=== PATIENT | female | born 1995 | race Caucasian/White ===

== ENCOUNTER → 2019-09-15 15:57 | Outpatient (BNVA) | payer MEDICAID, SELFPAY | PROVIDERS: Family Provider Nurse Practitioner Family; PCP Nurse Practitioner Family; Visit Provider Nurse Practitioner Family | DX: E78.2 Mixed hyperlipidemia (principal); Z79.899 Other long term (current) drug therapy; R10.84 Generalized abdominal pain; R30.0 Dysuria | CPT/HCPCS: 80053; 80061; 81003; 82306; 83036; 84443; 85025 ==

== ENCOUNTER 2019-09-21 15:33 | Outpatient (CLI) | payer MEDICAID, SELFPAY ==
--- NOTE | 2019-09-21 15:57 | XRR_ITS ---
PROCEDURE INFORMATION: Exam: XR Abdomen, 1 View Exam date and time: 09/21/2019 4:27 PM Age: 24 years old Clinical indication: Abdominal pain and other: Left flank; Prior surgery; Surgery date: 6+ months; Surgery type: Cone procedures. Iud; Patient HX: C/O left flank/abd pain and low back pain TECHNIQUE: Imaging protocol: XR of the abdomen. Views: Frontal supine view of the abdomen. 1 View. COMPARISON: CT abdomen pelvis w con* [id number] 09/18/2014 8:24 PM FINDINGS: Gastrointestinal tract: Unremarkable. No bowel dilation. Bones/joints: No acute abnormality identified. Soft tissues: The left pelvis contains a Mirena IUD. XR/XR KUB [id number] IMPRESSION: 1. No acute abdominal or pelvic abnormality identified. 2. Intrauterine device.
--- NOTE | 2019-09-21 15:57 | XRR_ITS ---
PROCEDURE INFORMATION: Exam: XR Lumbosacral Spine Complete with Flexion/Extension, 6 or More Views Exam date and time: 09/21/2019 4:29 PM Age: 24 years old Clinical indication: Low back pain; Prior surgery; Surgery date: 6+ months; Surgery type: Cone procedures. Iud; Patient HX: C/O low back and left flank abd pain last few weeks. HX of cervical cancer? TECHNIQUE: Imaging protocol: XR of the lumbosacral spine with flexion/extension, 6 or more views. Other technique: AP, both oblique, neutral, flexion and extension lateral, and spot lateral views of the lumbar spine are submitted. COMPARISON: CT abdomen pelvis w con* [id number] 09/18/2014 8:24 PM FINDINGS: Vertebrae: No instability with flexion or extension positioning identified. Interval now chronic mild T12 and L1 vertebral body compression deformities. Organs: The left pelvis contains a Mirena IUD. Soft tissues: Unremarkable. Other findings: Limited range of motion in flexion and extension. XR/XR lumbar spine 6V w f/e [id number] IMPRESSION: 1. Limited range of motion in flexion and extension. 2. No instability with flexion or extension positioning identified. 3. Interval now chronic mild T12 and L1 vertebral body compression deformities. 4. Intrauterine device.
== END 2019-09-21 15:34 | disposition home or self-care (01) ==
LOC: RAD 15:38
PROVIDERS: Family Provider Nurse Practitioner Family; PCP Nurse Practitioner Family; Visit Provider Nurse Practitioner Family
DX: R10.9 Unspecified abdominal pain (principal); M54.5 Low back pain; Z97.5 Presence of (intrauterine) contraceptive device
CPT/HCPCS: 72114; 74018; 85025

== ENCOUNTER 2019-10-05 13:35 | Outpatient (CLI) | payer MEDICAID, SELFPAY ==
--- NOTE | 2019-10-05 13:48 | MR_ITS ---
WS: [id number] MRI LUMBAR SPINE NONCONTRAST HISTORY: FRACTURE OF UNSPECIFIED LUMBAR VERTEBRA COMPARISON: Radiographs 09/21/2019 TECHNIQUE: Sagittal and axial multisequence imaging is submitted. Very mild anterior wedging of T12 and L1 with Schmorl's nodes defects. No acute marrow edema. New ant erior wedging since a CT from 2014. Moderate disc space narrowing and desiccation at T12-L1. There is mild desiccation without narrowing at L4-5. Conus terminates normally at L1. L1-L2: Normal. L2-L3: Small amount of fluid in the facet joints. No stenosis. L3-L4: Normal. L4-L5: Small amount of fluid in the facet joints with mild annular disc bulging and a moderate centra l to LEFT paracentral disc protrusion. Disc protrusion is contacting and slightly displacing the LEFT L5 nerve root. L5-S1: LEFT paracentral shallow disc protrusion with annular fissure. No contact on the nerve roots. No stenosis. Paravertebral soft tissues are normal. MR/MR lumbar spine wo con* [id number] IMPRESSION: 1. Moderate central to LEFT paracentral disc protrusion at L4-5 with contact a nd displacement of the LEFT L5 nerve root in the subarticular recess. 2. Shallow LEFT paracentral disc protrusion at L5-S1 without nerve root contac t. 3. Very mild anterior wedging of T12 and L1 is new since 2014. No acute fractu re.
== END 2019-10-05 13:36 | disposition home or self-care (01) ==
LOC: RADWPI 13:45
PROVIDERS: Family Provider Nurse Practitioner Family; PCP Nurse Practitioner Family; Visit Provider Nurse Practitioner Family
DX: M51.27 Other intervertebral disc displacement, lumbosacral region (principal); S22.080A Wedge compression fracture of T11-T12 vertebra, initial encounter for closed fracture; S32.010A Wedge compression fracture of first lumbar vertebra, initial encounter for closed fracture; X58.XXXA Exposure to other specified factors, initial encounter
CPT/HCPCS: 72148

== ENCOUNTER 2019-11-04 06:00 | Outpatient (RCR) | payer MEDICAID, SELFPAY | END 2019-11-24 23:59 | disposition home or self-care (01) | LOC: WPT 06:00 | PROVIDERS: Family Provider Nurse Practitioner Family; PCP Nurse Practitioner Family; Referring Provider Nurse Practitioner Family; Visit Provider Nurse Practitioner Family | DX: G89.29 Other chronic pain (principal); M54.9 Dorsalgia, unspecified | CPT/HCPCS: 97110; 97161 ==

== ENCOUNTER → 2019-11-23 09:02 | Outpatient (BNVA) | payer MEDICAID, SELFPAY | PROVIDERS: Family Provider Nurse Practitioner Family; PCP Nurse Practitioner Family; Visit Provider Nurse Practitioner Family | DX: K52.9 Noninfective gastroenteritis and colitis, unspecified (principal); E78.2 Mixed hyperlipidemia; Z79.899 Other long term (current) drug therapy | CPT/HCPCS: 82784; 83516; 84439; 84443; 84481 ==

== ENCOUNTER 2019-11-28 11:09 | Emergency (ER) | payer MEDICAID, SELFPAY ==
[2019-11-28 11:16] VITALS: BP 125/84; PULSE 76; RESP 14; TEMP 36.1; O2SAT 99; BMI 30.7
[2019-11-28 11:39] LABS: Add Urine Microscopic? NO
[2019-11-28 11:46] VITALS: BMI 30.7
--- NOTE | 2019-11-28 11:53 | XRR_ITS ---
PROCEDURE INFORMATION: Exam: XR Abdomen, 1 View Exam date and time: 11/28/2019 11:57 AM Age: 24 years old Clinical indication: Abdominal pain; Prior surgery; Surgery date: 6+ months; Surgery type: Leep procedure; Patient HX: Generalized abdomen pain, history of cervical cancer TECHNIQUE: Imaging protocol: XR of the abdomen. Views: Frontal supine view of the abdomen. 1 View. COMPARISON: CR XR KUB [id number] 09/21/2019 4:03 PM FINDINGS: Gastrointestinal tract: Interval decrease in quantity of stool, with paucity of intra-abdominal bowel gas. Organs: Interval removal of previously visualized IUD. Bones/joints: Mild scoliosis. Other findings: Umbilical piercing. XR/XR KUB portable [id number] IMPRESSION: Interval decrease in quantity of stool, with paucity of intra-abdominal bowel gas.
[2019-11-28 11:54] LABS: Urine Appearance Clear (CLEAR); Urine Color Yellow (Yellow)
[2019-11-28 11:55] LABS: Bilirubin Urine Neg (Negative); Blood Urine Neg (Negative); Glucose Urine UA Norm (Normal); Ketones Urine Negative (Negative); Leukocyte Esterase Urine Negative (Negative); Nitrate Urine Negative (Negative); Protein Urine Neg (Negative); Urobilinogen Urine Norm (Negative); pH Urine 6.5 (5-7)
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
[2019-11-28] MEDS: lactated ringers 1,000 ML 999 ML IV (12:08)
[2019-11-28] MEDS: ondansetron 2 mg/ML SDV 2 mL 4 MG IVP (12:08)
[2019-11-28 12:22] LABS: Basophils % 0.3 %; Eosinophils # 0.1 10^3/uL (0.0-0.8); Eosinophils % 0.8 %; Hematocrit 45.8 % (37.0-47.0); Hemoglobin 14.9 g/dL (11.5-15.3); Lymphocytes # 2.6 10^3/uL (0.8-4.8); Lymphocytes % 26.6 %; Mean Corpuscular HGB Conc 32.5 g/dL (30.0-36.0); Mean Corpuscular Hemoglobin 27.2 pg (28.0-34.0); Mean Corpuscular Volume 83.7 fL (81-99); Monocytes # 0.5 10^3/uL (0.2-0.9); Monocytes % 5.1 %; Neutrophils # 6.52 10^3/uL (1.8-7.7); Neutrophils % 66.8 %; Nucleated Red Blood Cells % 0 %; Platelet Count 333 10^3/cmm (130-400); Red Blood Count 5.47 10^6/uL (4.1-5.3); Red Cell Distribution Width 13.2 % (12.1-15.1); White Blood Count 9.8 10^3/uL (4.0-10.0)
[2019-11-28 12:40] LABS: HCG, Serum Qual Negative (Negative)
[2019-11-28 12:41] LABS: HCG Qualitative Urine. Negative (Negative)
[2019-11-28] MEDS: ketorolac 30 mg/mL INJ 15 MG IVP (12:44)
[2019-11-28 12:46] LABS: Alanine Aminotransferase 31 U/L (0-33); Albumin Level 4.5 g/dL (3.5-5.2); Alkaline Phosphatase 104 IU/L (35-105); Anion Gap 15.9 (5-19); Aspartate Amino Transferase 22 U/L (0-32); Blood Urea Nitrogen 7 mg/dL (6-20); Calcium 10.5 mg/dL (8.5-10.5); Carbon Dioxide 28 mmol/L (22-29); Chloride 98 mmol/L (98-107); Creatinine Clr Calc Pharmacy 153.3363; Glomerular Filtration Rate 121.8 mL/min (90-130); Glucose 130 mg/dL (65-115); Lipase 32 U/L (13-60); Osmolality Calculated 286 mOsm/kg (285-295); Potassium 3.9 mmol/L (3.5-5.1); Sodium 138 mmol/L (136-145); Total Bilirubin 0.8 mg/dL (0.15-1.2); Total Protein 7.5 g/dL (6.6-8.7)
[2019-11-28 15:00] VITALS: BP 114/69; PULSE 80; RESP 18; O2SAT 95
== END 2019-11-28 15:00 | disposition home or self-care (01) ==
PROVIDERS: Emergency Medicine; Emergency Provider Student in an Organized Health Care Education/Training Program; PCP Nurse Practitioner Family
DX: R10.84 Generalized abdominal pain (principal); K52.9 Noninfective gastroenteritis and colitis, unspecified; E78.2 Mixed hyperlipidemia
CPT/HCPCS: 12345; 74018; 80053; 81003; 81025; 83690; 84703; 85025; 86140; 96365; 96375; 99283; J1885; J2405

== ENCOUNTER → 2019-12-22 11:54 | Outpatient (BNVA) | payer MEDICAID, SELFPAY | PROVIDERS: PCP Nurse Practitioner Family; Visit Provider Nurse Practitioner Family | DX: K52.9 Noninfective gastroenteritis and colitis, unspecified (principal) | CPT/HCPCS: 87177; 87205; 87209; 87493 ==

== ENCOUNTER 2019-12-23 12:31 | Outpatient (CLI) | payer MEDICAID, SELFPAY ==
--- NOTE | 2019-12-23 12:45 | US_ITS ---
WS: [id number] Complete ABDOMINAL ULTRASOUND HISTORY: abdominal pain COMPARISON: CT 09/18/2014 Liver: 16.2 cm in length. Liver is top normal size. Heterogeneous appearance of the liver. There is a focal hypoechoic nodule in the RIGHT lobe of the liver measures 2.7 x 2.1 x 2.9 cm. No corresponding abnormality on the prior CT. Overall the echotexture of the liver is heterogeneous. No bile duct dil atation. Gallbladder: Normally distended with no gallstones, wall thickening or pericholecystic fluid. Gallbladder wall thickness: 0.2 cm. Pancreas: Normal size and echogenicity. CBD: 0.4 cm. Right kidney: 11.5 cm x 5.2 cm x 3.9 cm. No mass, cortical thickening or hydronephrosis. Left kidney: 12.0 cm x 5.1 cm x 5.2 cm. No mass, cortical thickening or hydronephrosis. Spleen: Normal size and echogenicity. Abdominal aorta and IVC are within normal limits. No ascites. US/US abdomen complete* [id number] IMPRESSION: 1. Heterogeneous liver with hepatic steatosis. 2. Hypoechoic mass in the liver measures 2.7 x 2.1 x 2.9 cm. This may be focal hepatic steatosis. Not typical for a hemangioma. Cannot exclude metastatic les ion. Recommend follow-up three-phase CT abdomen with CT pelvis. Further evaluat ion of this lesion liver lesion needs to be performed to exclude metastatic or primary lesion. 3. Normal gallbladder.
== END 2019-12-23 12:32 | disposition home or self-care (01) ==
LOC: RAD 12:35
PROVIDERS: PCP Nurse Practitioner Family; Visit Provider Nurse Practitioner Family
DX: R10.9 Unspecified abdominal pain (principal); K76.0 Fatty (change of) liver, not elsewhere classified; R16.0 Hepatomegaly, not elsewhere classified
CPT/HCPCS: 76700

== ENCOUNTER → 2020-03-09 14:14 | Outpatient (BNVA) | payer BC, MEDICAID, SELFPAY | PROVIDERS: PCP Nurse Practitioner Family; Visit Provider Internal Medicine | DX: Z11.59 Encounter for screening for other viral diseases (principal); R10.84 Generalized abdominal pain | CPT/HCPCS: 87635 ==

== ENCOUNTER 2020-03-13 08:25 | Day surgery (SDC) | payer BC, MEDICAID, SELFPAY ==
[2020-03-09 12:58] VITALS: BMI 34.2
[2020-03-13 08:43] LABS: OR HCG Qualitative Urine Negative (Negative)
[2020-03-13 08:45] VITALS: BP 117/84; PULSE 101; RESP 18; TEMP 35.5; O2SAT 98
[2020-03-13] MEDS: sodium chloride 0.9% 1,000 ML 30 ML IV (08:50)
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
[2020-03-13 10:39] VITALS: BP 138/74; PULSE 93; RESP 16; TEMP 36.1; O2SAT 96
[2020-03-13] MEDS: ondansetron 2 mg/ML SDV 2 mL 4 MG IVP ×2 (10:54→11:19)
[2020-03-13 10:55] VITALS: BP 108/74; PULSE 76; RESP 16; O2SAT 97
--- NOTE | 2020-03-13 15:42 | ANE.PACU2 ---
Inpatient post-anesthesia follow up: Airway intact: Yes Vital signs: Temperature 97 F Pulse Rate 76 Respiratory Rate 16 Blood Pressure 108/74 Pulse Oximetry 97 Oxygen Delivery Me thod Room Air Oxygen Flow Rate Fraction of Inspir ed Oxygen Hydration adequate: Yes Nausea and vomiting: No Pain level: 1 Mental status: Baseline
== END 2020-03-13 11:54 | disposition home or self-care (01) ==
PROVIDERS: Anesthesiology; PCP Nurse Practitioner Family; Visit Provider Internal Medicine
PROC: 0DJ08ZZ Inspection of Upper Intestinal Tract, Via Natural or Artificial Opening Endoscopic (ICD-10-PCS; CPT 43235; principal; 2020-03-13 09:30)
PROC: 0DJD8ZZ Inspection of Lower Intestinal Tract, Via Natural or Artificial Opening Endoscopic (ICD-10-PCS; CPT 45378; 2020-03-13 09:30)
DX: K52.9 Noninfective gastroenteritis and colitis, unspecified (principal); R16.0 Hepatomegaly, not elsewhere classified; M19.90 Unspecified osteoarthritis, unspecified site; K21.9 Gastro-esophageal reflux disease without esophagitis; E78.2 Mixed hyperlipidemia; F41.9 Anxiety disorder, unspecified
CPT/HCPCS: 12345; 43239; 45380; 81025; 82274; 83630; 84703; 87046; 87177; 87209; 87493; 88305; J2405; J2704; J7030

== ENCOUNTER → 2020-05-01 09:34 | Outpatient (BNVA) | payer BC, MEDICAID, SELFPAY | PROVIDERS: PCP Nurse Practitioner Family; Referring Provider Nurse Practitioner Family; Visit Provider Anesthesiology Pain Medicine | DX: G89.29 Other chronic pain (principal); M54.9 Dorsalgia, unspecified; M79.605 Pain in left leg; Z79.899 Other long term (current) drug therapy; Z79.891 Long term (current) use of opiate analgesic | CPT/HCPCS: 99205 ==

== ENCOUNTER → 2020-05-02 10:43 | Outpatient (BNVA) | payer BC, MEDICAID, SELFPAY | PROVIDERS: PCP Nurse Practitioner Family; Visit Provider Orthopaedic Surgery | DX: M41.85 Other forms of scoliosis, thoracolumbar region (principal); M47.894 Other spondylosis, thoracic region; M47.896 Other spondylosis, lumbar region; M54.5 Low back pain; G89.29 Other chronic pain | CPT/HCPCS: 72110 ==

== ENCOUNTER → 2020-05-30 11:28 | Outpatient (BNVA) | payer BC, MEDICAID, SELFPAY | PROVIDERS: PCP Nurse Practitioner Family; Visit Provider Nurse Practitioner Family | DX: Z01.818 Encounter for other preprocedural examination (principal); Z20.822 Contact with and (suspected) exposure to COVID-19 | CPT/HCPCS: 87635 ==

== ENCOUNTER 2020-06-13 09:00 | Outpatient (CLI) | payer BC, MEDICAID, SELFPAY ==
[2020-06-13] MEDS: iohexol 300 mg/mL 100 mL Btl IV (10:27)
--- NOTE | 2020-06-13 10:30 | CT_ITS ---
WS: [id number] CT ABDOMEN WITH CONTRAST HISTORY: R16.0 - Hepatomegaly, not elsewhere classified 3 phase imaging of the liver. Oral contrast has been provided. Coronal and sagittal reformats are sub mitted. All CT scans at [facility] use at least one of these dose optimization techniques : automated exposure control; mA and/or kV adjustment per patient size (includes targeted exams where dose is matched to clinical indication); or iterative reconstruction. CONTRAST: Omnipaque 300; 95 mL IV. DLP: 2610.24 mGycm COMPARISON: 09/18/2014 and prior abdomen ultrasound 12/23/2019 Lower thorax: Unremarkable. Liver: Liver is moderately enlarged. There is severe, near diffuse hepatic steatosis with a few areas of sparing. There is an area of increased density in the medial LEFT lobe of the liver correspondin g to the previously described ultrasound abnormality measuring 2.5 x 2.2 cm. There has been no increa se in size of this liver abnormality since the prior study. On the postcontrast imaging there is very mild enhancement. No additional similar areas. No bile duct dilatation. Gallbladder: Normal. Pancreas: Normal. Spleen: Normal. Adrenals: Normal. Right kidney: Normal. Left kidney: Normal. Aorta: Normal. GI tract: As visualized are normal. No adenopathy or free fluid. Abdominal wall: No hernia. Visualized osseous structures: Mild degenerative disc disease at T12-L1. CT/CT abdomen wo/w con [id number] IMPRESSION: 1. Moderate hepatomegaly with severe hepatic steatosis with areas of fatty spa ring. 2. Previously described mass by ultrasound in the medial LEFT lobe of the live r is unchanged in size now measuring 2.5 x 2.2 cm. Although there is slight enh ancement no increase in size suggests this could be a benign lesion such as fat ty sparing. Suggest additional evaluation. MRI with contrast or follow-up ultra sound to continue to document stability in size is recommended. Does not appear to be a hemangioma. Liver lesion was not present on a prior CT from 2014.
== END 2020-06-13 09:01 | disposition home or self-care (01) ==
PROVIDERS: PCP Nurse Practitioner Family; Visit Provider Surgery
DX: R16.0 Hepatomegaly, not elsewhere classified (principal); K76.0 Fatty (change of) liver, not elsewhere classified; K76.9 Liver disease, unspecified
CPT/HCPCS: 74170; Q9967

== ENCOUNTER → 2020-06-21 09:36 | Outpatient (BNVA) | payer BC, MEDICAID, SELFPAY | PROVIDERS: PCP Nurse Practitioner Family; Visit Provider Nurse Practitioner Family | DX: K76.0 Fatty (change of) liver, not elsewhere classified (principal); E78.2 Mixed hyperlipidemia; R53.83 Other fatigue; E55.9 Vitamin D deficiency, unspecified; Z79.899 Other long term (current) drug therapy; N91.2 Amenorrhea, unspecified; R16.0 Hepatomegaly, not elsewhere classified | CPT/HCPCS: 80053; 80061; 81003; 81025; 82306; 83036; 84439; 85025; 85610; 85611 ==

== ENCOUNTER → 2021-11-27 11:32 | Outpatient (BNVA) | payer BC, MEDICAID, SELFPAY | PROVIDERS: Visit Provider Nurse Practitioner | DX: N92.6 Irregular menstruation, unspecified (principal); N92.0 Excessive and frequent menstruation with regular cycle | CPT/HCPCS: 85025 ==

== ENCOUNTER 2022-01-01 15:40 | Outpatient (CLI) | payer BC, MEDICAID, SELFPAY ==
--- NOTE | 2022-01-01 16:00 | US_ITS ---
WS: [id number] TRANSVAGINAL PELVIC ULTRASOUND HISTORY: N92.6 - Irregular menstruation, unspecified COMPARISON: 05/12/2017 Uterus: 8.7 cm x 5.2 cm x 4.3 cm. Normal size anteverted uterus. No fibroid or mass. Small nabothian cysts. Endometrium: 1.6 cm. Endometrium is top normal diameter. Diffuse increased echogenicity throughout th e endometrium. Along the anterior endometrial stripe there is loss of the normal endometrial myometri al junction. There is increased echogenicity extending from the endometrium into the myometrium. This may be an area of very subtle adenomyosis. There is very mild increased vascularity. Right ovary: 3.8 cm x 2.9 cm x 1.7 cm. Normal size and vascularity, no cystic or solid masses. Left ovary: 2.4 cm x 1.9 cm x 1.5 cm. Normal size and vascularity, no cystic or solid masses. Difficu lty obtaining Doppler in the LEFT ovary is probably due to the deep position within the pelvis. No free fluid. US/US transvaginal [id number] IMPRESSION: 1. Mildly thickened endometrium with a indistinct endometrial/myometrial zone anteriorly. This is a similar location to the prior endometrial thickening on t he prior study. Suspect an area of adenomyosis. 2. Difficulty obtaining Doppler LEFT ovary due to deep position within the pel vis.
== END 2022-01-01 15:41 | disposition home or self-care (01) ==
PROVIDERS: PCP Registered Nurse; Visit Provider Nurse Practitioner
DX: N92.6 Irregular menstruation, unspecified (principal)
CPT/HCPCS: 76830

== ENCOUNTER 2022-01-16 14:45 | Outpatient (CLI) | payer BC, MEDICAID, SELFPAY ==
--- NOTE | 2022-01-16 | CT_ITS ---
WS: [id number] CT ABDOMEN WITH AND WITHOUT CONTRAST HISTORY: LIVER LESION Contiguous multiphase 5 mm axial imaging performed to the abdomen. Oral contrast has not been provide d. Coronal and sagittal reformats are submitted. All CT scans at [facility] use at least one of these dose optimization techniques: automated exposure control; mA and/or kV adjustment per patien t size (includes targeted exams where dose is matched to clinical indication); or iterative reconstru ction. CONTRAST: Omnipaque 350; 95 mL IV. DLP: 3325.47 mGy.cm COMPARISON: None available. Lower thorax: Unremarkable. Liver: Enlarged liver with diffuse hepatic steatosis. Blush-like area of enhancement medial LEFT segm ent measures 16 x 12 mm. On the precontrast imaging there is also slight increased density. Very mild blush-like enhancement but does not completely fill-in. No additional liver abnormalities are identi fied. Normal portal vein. No bile duct dilatation. Gallbladder: Normal. Pancreas: Normal. Spleen: Normal. Adrenals: Normal. Right kidney: Normal. Left kidney: Normal. Aorta: Normal. GI tract: As visualized are normal. No adenopathy or free fluid. Abdominal wall: No hernia. Visualized osseous structures: Degenerative disc disease at T12-L1. CT/CT abdomen wo/w con [id number] IMPRESSION: 1. Blush-like area of enhancement medial segment LEFT lobe of the liver measur es 16 x 12 mm. A typical enhancement pattern on the basis of hepatic steatosis. I suspect this is probably a small hemangioma. 2. No prior studies for comparison. If there are prior imaging studies follow- up and comparison with those studies would be very important to be sure we are assessing the same lesion within the liver. Also comparison with prior imaging studies for size would be important. Without prior examinations follow-up shoul d be performed. Recommend follow-up liver CT due to the atypical appearance. Fa vor hemangioma. 3. Marked hepatic steatosis with hepatomegaly.
[2022-01-16] MEDS: iohexol 350 mg/mL 500 mL Btl (per mL) IV (15:08)
== END 2022-01-16 14:46 | disposition home or self-care (01) ==
LOC: RAD 14:50
PROVIDERS: PCP Nurse Practitioner Family; Visit Provider Nurse Practitioner Family
DX: K76.9 Liver disease, unspecified (principal); K76.0 Fatty (change of) liver, not elsewhere classified; R16.0 Hepatomegaly, not elsewhere classified
CPT/HCPCS: 74170; Q9967

== ENCOUNTER 2022-02-04 15:36 | Outpatient (CLI) | payer BC, MEDICAID, SELFPAY ==
[2022-02-04 16:18] LABS: Basophils # 0.1 10^3/uL (0.0-0.1); Basophils % 0.5 %; Eosinophils # 0.2 10^3/uL (0.0-0.8); Eosinophils % 1.8 %; Hematocrit 46.2 % (37.0-47.0); Hemoglobin 14.9 g/dL (11.5-15.3); Lymphocytes # 3.5 10^3/uL (0.8-4.8); Lymphocytes % 33.8 %; Mean Corpuscular HGB Conc 32.3 g/dL (30.0-36.0); Mean Corpuscular Volume 86.7 fl (81-99); Monocytes # 0.7 10^3/uL (0.2-0.9); Monocytes % 6.9 %; Neutrophils # 5.88 10^3/uL (1.8-7.7); Neutrophils % 56.5 %; Nucleated Red Blood Cells % 0 %; Platelet Count 341 10^3/cmm (130-400); Red Blood Count 5.33 10^6/uL (4.1-5.3); Red Cell Distribution Width 12.3 % (12.1-15.1); White Blood Count 10.4 10^3/uL (4.0-10.0)
[2022-02-04 18:03] LABS: Follicle Stimulating Hormone 7.2 mIU/mL; Thyroid Stimulating Hormone 1.98 uIU/mL (0.27-4.20)
== END 2022-02-04 15:37 | disposition home or self-care (01) ==
LOC: LAB 15:41
PROVIDERS: PCP Registered Nurse; Visit Provider Obstetrics & Gynecology
DX: N92.6 Irregular menstruation, unspecified (principal)
CPT/HCPCS: 36415; 83001; 84146; 84443; 84702; 85025; 87491; 87591; 87661

== ENCOUNTER → 2022-02-12 12:34 | Outpatient (BNVA) | payer BC, MEDICAID, SELFPAY | PROVIDERS: PCP Registered Nurse; Visit Provider Obstetrics & Gynecology | DX: N92.0 Excessive and frequent menstruation with regular cycle (principal) | CPT/HCPCS: 76830 ==

== ENCOUNTER 2022-03-13 13:39 | Observation (INO) | payer BC, MEDICAID, SELFPAY ==
[2022-03-11 13:32] VITALS: BMI 30.6
[2022-03-11 13:45] LABS: OR HCG Qualitative Urine Negative (Negative)
[2022-03-11 13:50] LABS: Basophils % 0.4 %; Eosinophils # 0.3 10^3/uL (0.0-0.8); Eosinophils % 2.6 %; Hematocrit 44.9 % (37.0-47.0); Hemoglobin 14.6 g/dL (11.5-15.3); Lymphocytes # 3.2 10^3/uL (0.8-4.8); Lymphocytes % 33.4 %; Mean Corpuscular HGB Conc 32.5 g/dL (30.0-36.0); Mean Corpuscular Hemoglobin 28.1 pg (28.0-34.0); Mean Corpuscular Volume 86.5 fl (81-99); Mean Platelet Volume 9.3 fL (7.4-10.4); Monocytes # 0.7 10^3/uL (0.2-0.9); Monocytes % 6.7 %; Neutrophils # 5.46 10^3/uL (1.8-7.7); Neutrophils % 56.4 %; Nucleated Red Blood Cells % 0 %; Platelet Count 282 10^3/cmm (130-400); Red Blood Count 5.19 10^6/uL (4.1-5.3); Red Cell Distribution Width 12.2 % (12.1-15.1); White Blood Count 9.7 10^3/uL (4.0-10.0)
[2022-03-11 14:10] LABS: Alanine Aminotransferase 39 U/L (0-33); Albumin Level 4.7 g/dL (3.5-5.2); Alkaline Phosphatase 90 U/L (35-105); Blood Urea Nitrogen 12 mg/dL (6-20); Calcium 9.5 mg/dL (8.5-10.5); Carbon Dioxide 26 mmol/L (22-29); Chloride 100 mmol/L (98-107); Globulin 3.3 g/dL (1.3-4.6); Glucose 103 mg/dL (65-115); Osmolality Calculated 288 mOsm/kg (285-295); Sodium 139 mmol/L (136-145); Total Bilirubin 0.8 mg/dL (0.15-1.2)
[2022-03-11 14:11] LABS: Anion Gap 17.1 (5-19); Aspartate Amino Transferase 35 U/L (0-32); Potassium 4.1 mmol/L (3.5-5.1)
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
[2022-03-13] VITALS (26 sets, daily range): BP systolic 92–137; BP diastolic 56–91; PULSE 57–100; RESP 14–22; TEMP 36.3–36.8; O2SAT 81–100
[2022-03-13 11:37] LABS: Glucose Point of Care 96 mg/dL (70-110)
[2022-03-13] MEDS: sodium chloride 0.9% 500 ML IV (11:38)
[2022-03-13] MEDS: scopolamine 1.5 Patch 1 PATCH TRANSDERMA (11:39)
--- NOTE | 2022-03-13 11:40 | P.ANESUD_ITS ---
Pre-Anesthetic Update Pre-Anesthetic Assessment: Date of Surgery/Procedure: 03/13/22 Preop Karissa gnosis: Abnormal uterine bleeding, cystocele, stress urinary incontinence Proposed Procedure: Operation Date: 03/13/22 12:35 Proposed Procedures p Single incision mid-urethral sling 74241, Anterior repair (colporrhaphy) 64237(Not Applicable) - Frankie Montgomery MD s Anterior Repair(Not Applicable) - Fraknie Montgomery MD Any changes to Pre-Anesthetic Assessment?: No Last Intake: Intake Last Liquid Date 03/12/22 Last Liquid Time 19:00 Last Solid Date 03/12/22 Last Solid Time 18:00 Labs Last 48hrs: Short CBC 03/11/22 Range/Units 13:30 WBC 9.7 (4.0-10.0) 10^3/ uL Hgb 14.6 (11.5-15.3) g/dL Hct 44.9 (37.0-47.0) % MCV 86.5 (81-99) fl Plt Count 282 (130-400) 10^3/c mm Neut % (Auto) 56.4 % Neut # (Auto) 5.46 (1.8-7.7) 10^3/u L BMP 03/11/22 13:30 Sodium 139 Potassium 4.1 Chloride 100 Carbon Dioxide 26 BUN 12 Creatinine 0.5 Glucose 103 Calcium 9.5 Liver Function 03/11/22 Range/Units 13:30 Total Bilirubin 0.8 (0.15-1.2) mg/dL AST 35 H (0-32) U/L ALT 39 H (0-33) U/L Alkaline Phosphata se 90 (35-105) U/L Albumin 4.7 (3.5-5.2) g/dL Blood Bank 03/11/22 13:30 Blood Type O Positive Rho(D) Type Positive Antibody Screen Negative Vitals: Temperature 97.4 F L 03/13/22 11:26 Temperature Source Temporal Artery S can 03/13/22 11:26 Pulse Rate 65 03/13/22 11:26 Pulse Rhythm 03/13/22 11:26 Pulse Strength 3+ Normal 03/13/22 11:26 Respiratory Rate 18 03/13/22 11:26 Blood Pressure 111/70 03/13/22 11:26 Blood Pressure Fariba n 83 03/13/22 11:26 Pulse Oximetry 99 03/13/22 11:26 Oxygen Delivery Me thod 03/13/22 11:26 Exam: Pre-Anes Outpt Exam: alert, oriented x 3, clear to auscultation bilaterally and regular rate & rhythm Cardiac Studies: No Data to Display
--- NOTE | 2022-03-13 11:49 | W.PM.OPSUD ---
Surgery/Procedure H&P Update DATE OF PROCEDURE: March 13, 2022 DATE H&P PERFORMED: 03/11/22 H&P UPDATE INFORMATION: I have reviewed H&P completed within last 30 days, I have examined patient prior to procedure and No changes to prior documentation PREOP DIAGNOSIS: Abnormal uterine bleeding, cystocele, stress urinary incontinence PLANNED PROCEDURE: Operation Date: 03/13/22 12:35 Proposed Procedures p Single incision mid-urethral sling 33021, Anterior repair (colporrhaphy) 83811(Not Applicable) - Frankie Montgomery MD s Anterior Repair(Not Applicable) - Frankie Montgomery MD
[2022-03-13] MEDS: ceFAZolin 2,000 MG in sodium chloride 0.9% (plus) 50 ML 100 MG IV (12:10)
[2022-03-13] MEDS: estrogens Conjugated Cream 30 gm 1 APPLIC VAGINAL (13:22)
--- NOTE | 2022-03-13 13:31 | P.OP_ITS ---
Operative Report Date of procedure: March 13, 2022 Pre-op diagnosis: Preop Diagnosis Abnormal uterine bleeding, cystocele, stress urinary incontinence Post-op diagnosis: Same as above Procedure done: Hysteroscopy and D&C via MyoSure. Anterior colporrhaphy augmented with allograft. Single incision mid urethral sling. Cystoscopy Surgeon: Frankie Montgomery MD Estimated blood loss (mL): 500 Procedure: After informed consent, the risks included but were not limited to bleeding, infection, injury to internal organs. The patient was counseled on a possible laparotomy and on the potential need for hysterectomy. The patient expressed understanding of the risks involved, all questions were answered, and the patient consented to the procedure. The patient was taken to the operating room where general anesthesia was administered. She was placed in the dorsal lithotomy position and prepped and draped in sterile fashion. A time out procedure was performed. The patient was examined under anesthesia and found to have a normal uterus with normal adnexa. A sterile weight speculum was placed in the vagina. The uterus was then gently sounded to 9 cm, and the cervix was dilated. The 0 degrees MyoSure hysteroscope was advanced gently to the uterine fundus while visualizing the monitor. Survey of the uterine cavity showed: Proliferative endometrium, the fundus shows normal proliferative endometrium; left ostium was visualized, and lateral wall with proliferative endometrium; right ostium visualized, and lateral wall with proliferative endometrium; anterior and posterior fishman are with proliferative endometrium; endocervical canal is normal. The MyoSure device was advanced and the direct visualization the endometrium was morcellated without complication. At the end of morcellation the fluid deficit was 350 mL and was estimated at approximately 200 mL were on the floor. There was minimal bleeding noted and the tenaculum removed with goad hemostasis noted. Then we proceeded to the single incision mid urethral sling and anterior colporrhaphy. The anterior vaginal mucosa beneath the midurethra was infiltrated with 0.5% Marcaine with epinephrine. A vertical midline incision was made beneath the midurethra, nearly 1.5 cm length. Careful submucosal dissection was performed bilaterally up to the interior portion of the inferior pubic ramus. The insertion of adductor longus tendon on the patient?s pubic ramus was identified as reference land jose. Palpated the notch along the internal edge of ischiopubic ramus where the adductor longus tendon and the inferior pubic ramus meet. The Altis single incision sling (SIS) was selected. Then the needle of the SIS inserted aiming at the location of this notch. One of the integrated self- fixating tips place onto the needle by sliding it over the end of the needle. The needle/sling assembly was inserted toward the location of identified reference notch making sure that the flat of the handle is perpendicular to the desired path. The needle was tracked along the posterior surface of the ischiopubic ramus until the midline jose on the mesh is approximately at the midline position under the urethra. The needle was removed and the same was repeated on the contralateral side until the appropriate sling tension under the urethra was achieved ensuring that the mesh lays flat. The needle was removed and vaginal incision was closed in a running interlocking fashion with 2-0 Vicryl. The vaginal mucosa was then injected in the midline with normal saline. The vaginal mucosa was scored in the midline with the Bovie approximately 1 cm medial to the urethral meatus to 1 cm distal to the cervix. This vaginal mucosa was then undermined and then incised in the midline with the Metzenbaum scissors. The lateral aspects of the vaginal mucosa were then grasped with the Allis clamps and the vaginal mucosa was then dissected off the underlying fascia with the Metzenbaum scissors. Again, there was noted to be quite a bit of oozing at the incision, which was controlled with cautery. After adequate dissection was performed, bilaterally. An Coloplast allograft was modified at time of application to fit spacea, 3x3 cm piece . The Coloplast allograft placed in fro nt of cystocele ready to be implanted facing the vagina mucosa. Suture is placed at distal end of graft and placed towards vaginal cuff. Final suture is placed on proximal portion of the graft to complete the placement overlying the bladder. Then Interrupted vertical mattress sutures of 0 Vicryl were used to elevate the cystocele superiorly. The excessive vaginal mucosa was then trimmed with the Metzenbaum scissors and the vaginal mucosa was then reapproximated in the running interlocking fashion with 2-0 Vicryl. Then the Tenorio catheter was removed and cystoscope was inserted. The bladder was filled with sterile water. Complete evaluation of the bladder mucosa was performed noting no lacerations, dimpling, tears, bleeding of the mucosa or muscular layers. Both ureteral orifices were identified. Prompt excretion of urine from both ureteral orifices was noted. Cystoscope was withdrawn. The Tenorio catheter was replaced. Excellent hemostasis was obtained. A vaginal pack is placed overnight as postoperative support for the vaginal tissues after graft placement and closure of vaginal incisions. Sponge, lap, needle, and instrument counts were correct times three. The patient was taken to the recovery room, awake and in stable condition.
--- NOTE | 2022-03-13 14:15 | SUR.PHASEI ---
1355 Bilat SCDs on and connected to pump.
[2022-03-13] MEDS: ondansetron 2 mg/ML SDV 2 mL 4 MG IVP ×2 (15:41→21:03)
[2022-03-13] MEDS: HYDROcodone-acetaminophen 5-325 mg Tablet PO (15:41)
[2022-03-13] MEDS: dextrose 5%-lactated ringers 1,000 ML 125 ML IV ×2 (15:48→23:14)
--- NOTE | 2022-03-13 16:32 | ANE.PACU2 ---
Inpatient post-anesthesia follow up: Airway intact: Yes Vital signs: Temperature 97.3 F Pulse Rate 79 Respiratory Rate 18 Blood Pressure 117/76 Pulse Oximetry 97 Oxygen Delivery Me thod Room Air Oxygen Flow Rate 6 Fraction of Inspir ed Oxygen Hydration adequate: Yes Nausea and vomiting: No Pain level: 3 Mental status: Baseline
[2022-03-13] MEDS: HYDROcodone-acetaminophen 5-325 mg Tablet 1 TAB PO (18:04)
[2022-03-13] MEDS: docusate sodium 100 mg Capsule PO (18:04)
[2022-03-13 19:59] LABS: Basophils % 0.2 %; Eosinophils % 0.1 %; Hematocrit 40.7 % (37.0-47.0); Hemoglobin 13.6 g/dL (11.5-15.3); Lymphocytes # 1.2 10^3/uL (0.8-4.8); Lymphocytes % 9.7 %; Mean Corpuscular HGB Conc 33.4 g/dL (30.0-36.0); Mean Corpuscular Hemoglobin 28.3 pg (28.0-34.0); Mean Corpuscular Volume 84.8 fl (81-99); Mean Platelet Volume 9.1 fL (7.4-10.4); Monocytes # 0.1 10^3/uL (0.2-0.9); Monocytes % 1.1 %; Neutrophils # 11.21 10^3/uL (1.8-7.7); Neutrophils % 88.5 %; Nucleated Red Blood Cells % 0 %; Platelet Count 281 10^3/cmm (130-400); Red Cell Distribution Width 12.3 % (12.1-15.1); White Blood Count 12.7 10^3/uL (4.0-10.0)
[2022-03-13] MEDS: fentaNYL 50 mcg/mL INJ 2mL IVP ×2 (20:01→21:03)
[2022-03-13] MEDS: ketorolac 30 mg/mL INJ IVP (20:04)
[2022-03-13] MEDS: hyDROXYzine 25 mg Capsule 50 MG PO (21:38)
[2022-03-13] MEDS: zolpidem 5 mg Tablet 10 MG PO (21:38)
[2022-03-14] VITALS (16 sets, daily range): BP systolic 93–112; BP diastolic 55–71; PULSE 61–123; RESP 14–16; TEMP 36.6–36.7; O2SAT 92–97
[2022-03-14] MEDS: ketorolac 30 mg/mL INJ IVP ×2 (02:15→08:26)
[2022-03-14] MEDS: HYDROcodone-acetaminophen 5-325 mg Tablet PO ×2 (04:34→10:35)
[2022-03-14 04:42] LABS: Hematocrit 35.7 % (37.0-47.0); Hemoglobin 11.8 g/dL (11.5-15.3); Mean Corpuscular HGB Conc 33.1 g/dL (30.0-36.0); Mean Corpuscular Hemoglobin 28.3 pg (28.0-34.0); Mean Corpuscular Volume 85.6 fl (81-99); Mean Platelet Volume 9.3 fL (7.4-10.4); Platelet Count 270 10^3/cmm (130-400); Red Blood Count 4.17 10^6/uL (4.1-5.3); Red Cell Distribution Width 12.2 % (12.1-15.1); White Blood Count 16.6 10^3/uL (4.0-10.0)
--- NOTE | 2022-03-14 09:20 | PM.OBGYDC ---
Discharge Providers SENIOR QUALITY ASSURANCE ANALYST Date of Admission: 03/13/22 13:39 Date of Discharge: 03/14/22 Attending Provider at Admission: Frankie Montgomery MD Attending Provider at Discharge: Frankie Montgoemry MD Primary Care Provider: YAA Lopez Diagnoses at Discharge Discharge Diagnosis (1) POP-Q stage 2 cystocele: Status: Acute (2) MAREK (stress urinary incontinence, female): Status: Acute (3) Menorrhagia: Status: Acute Hospital Course Hospital Course Mrs. Hernandez 26-year-old female with a history of abnormal uterine bleeding unresponsive to medical management, cystocele stage II, and stress urinary incontinence. Admitted for hysteroscopy and D&C via MyoSure, anterior colporrhaphy augmented with allograft, and single incision mid urethral sling. She is after vital hemodynamically stable postoperatively day 1. Overnight the patient was in again for low sciatic nerve pain managed with pain medication. She ambulating well tolerating diet well. She was counseled regarding pelvic rest for 6 weeks (no sex, no tampons, no vaginal douches). Return to the emergency room if any fever, increased bleeding or pain. Physical Exam Narrative: GA: Alert and oriented ?3. HEENT: WNL. Heart: Regular rate and rhythm. Lungs: Clear to auscultation bilaterally. Abdomen: Bowel sounds present, nontender, minimal tenderness. CAFETERIA SUPERVISOR: spotting bleeding. Extremities: No edema, no cyanosis, no calves pain. Urinary Catheter Management: Tenorio: Cath Placed During This Visit: yes, but has since been removed by the nurse Reason for Continuing Indwelling Catheter: Perioperative Use in Selected Surgeries Urinary Catheter Date of Insertion: 03/13/22 Urinary Catheter Time of Insertion: 12:30 Date Urinary Catheter Removed: 03/14/22 Time Urinary Catheter Discontinued: 08:30 History History History 6 Term 0 4 Miscarriages/Ectopic 2 Living Children 3 Discharge Data Studies Completed and Pending Pending at discharge Category Date Time Status ES surgery / GI images Routine Exams 03/13/22 Taken Pathology: Surgical [PTH] Routine Pth 03/13/22 13:30 Received Laboratory Results WBC 16.6 10^3/uL (4.0-10.0) H 03/14/22 04:30 RBC 4.17 10^6/uL (4.1-5.3) 03/14/22 04:30 Hgb 11.8 g/dL (11.5-15.3) 03/14/22 04:30 Hct 35.7 % (37.0-47.0) L 03/14/22 04:30 MCV 85.6 fl (81-99) 03/14/22 04:30 MCH 28.3 pg (28.0-34.0) 03/14/22 04:30 MCHC 33.1 g/dL (30.0-36.0) 03/14/22 04:30 RDW 12.2 % (12.1-15.1) 03/14/22 04:30 Plt Count 270 10^3/cmm (130-400) 03/14/22 04:30 MPV 9.3 fL (7.4-10.4) 03/14/22 04:30 Neut % (Auto) 88.5 % 03/13/22 19:35 Lymph % (Auto) 9.7 % 03/13/22 19:35 [place] % (Auto) 1.1 % 03/13/22 19:35 Eos % (Auto) 0.1 % 03/13/22 19:35 Baso % (Auto) 0.2 % 03/13/22 19:35 Neut # (Auto) 11.21 10^3/uL (1.8-7.7) H 03/13/22 19:35 Lymph # (Auto) 1.2 10^3/uL (0.8-4.8) 03/13/22 19:35 [place] # (Auto) 0.1 10^3/uL (0.2-0.9) L 03/13/22 19:35 Eos # (Auto) 0.0 10^3/uL (0.0-0.8) 03/13/22 19:35 Baso # (Auto) 0.0 10^3/uL (0.0-0.1) 03/13/22 19:35 Nucleated RBC % (auto) 0 % 03/13/22 19:35 Nucleated RBCs # 0.0 /100WBC 03/13/22 19:35 Sodium 139 mmol/L (136-145) 03/11/22 13:30 Potassium 4.1 mmol/L (3.5-5.1) 03/11/22 13:30 Chloride 100 mmol/L (98-107) 03/11/22 13:30 Carbon Dioxide 26 mmol/L (22-29) 03/11/22 13:30 Anion Gap 17.1 (5-19) 03/11/22 13:30 BUN 12 mg/dL (6-20) 03/11/22 13:30 Creatinine 0.5 mg/dL (0.5-0.9) 03/11/22 13:30 GFR Calculation 148.0 mL/min (90-130) H 03/11/22 13:30 Glucose 103 mg/dL (65-115) 03/11/22 13:30 POC Glucose 96 mg/dL (70-110) 03/13/22 11:34 Calculated Osmolality 288 mOsm/kg (285-295) 03/11/22 13:30 Calcium 9.5 mg/dL (8.5-10.5) 03/11/22 13:30 Total Bilirubin 0.8 mg/dL (0.15-1.2) 03/11/22 13:30 AST 35 U/L (0-32) H 03/11/22 13:30 ALT 39 U/L (0-33) H 03/11/22 13:30 Alkaline Phosphatase 90 U/L (35-105) 03/11/22 13:30 Total Protein 8.0 g/dL (6.6-8.7) 03/11/22 13:30 Albumin 4.7 g/dL (3.5-5.2) 03/11/22 13:30 Globulin 3.3 g/dL (1.3-4.6) 03/11/22 13:30 Urine HCG, Qual Negative (Negative) 03/11/22 13:30 Blood Type O Positive 03/11/22 13:30 Rho(D) Type Positive 03/11/22 13:30 Antibody Screen Negative 03/11/22 13:30 Vitals Last Vital Signs Temp 98.1 F 03/14/22 04:28 Pulse 61 03/14/22 06:41 Resp 14 03/14/22 06:41 BP 106/67 03/14/22 06:41 Pulse Ox 96 03/14/22 06:41 O2 Del Method 03/14/22 06:41 O2 Flow Rate 2 03/14/22 08:00 Discharge Plan Discharge Patient Disposition: Home Condition: Stable Prescriptions: New hydrocodone-acetaminophen 5-325 mg tablet 1 tab PO Q4H PRN (Reason: pain) Qty: 20 0RF acetaminophen 325 mg capsule 325 mg PO Q4H PRN (Reason: fever or pain) Qty: 60 0RF Continued epinephrine 0.3 mg/0.3 mL auto-injector 0.3 mg IM Q4H PRN (Reason: Anaphylactic reaction) metformin 500 mg tablet extended release 24hr 500 mg PO BID Trulicity 0.75 mg/0.5 mL pen injector 0.75 mg SUBCUT .weekly dextroamphetamine-amphetamine [Adderall] 10 mg tablet 10 mg PO DAILY Discharge Orders: Discharge Order (Routine); Ordered 03/14/22 Ordered By: Frankie Montgomery Referrals: Frankie Montgomery MD [Physician] - 2 weeks Discharge Diet: Usual diet Patient Instructions: Bladder Sling for Women (GEN), Anterior Vaginal Repair (GEN), OB Discharge Report, OB Food/Drug Interaction Guide, Opioid Safety, Bladder Sling for Women (DC), Dilation and Curettage (GEN), MyoSure Tissue Removal System (GEN) Activity Restrictions/Additional Instructions: 1. Please call [facility] on next working day to make your post-operative appointment in 2 weeks. 2. Please stay home until you come back to the clinic on first post-operative check up. 3. Please follow instructions on your medications CAREFULLY. 4. If you have abdominal incision, do not cover it unless dressing is necessary because of drainage. OK to shower, but avoid bath. Leave steri-strips until they fall off. If they are still on one week after surgery, you may remove them. 5. If you had vaginal surgery or vaginal repair, Dr. Montgomery may instruct you to take SITZ bath. 6. Yellow, blood tinged odorous vaginal discharge is usually normal after hysterectomy or vaginal surgeries. 7. No sexual intercourse, tampons, or douches until you are completely released from the post-operative care. 8. Avoid constipation by eating right and maybe using some Metamucil or Milk of Magnesia. 9. All prescription refills are given during the working hours. Please do no wait till it runs out. Call the clinic at [phone] before your medication runs out. The clinic will get in touch with your doctor to prescribe medications if necessary. 10. Please remain within 40 mile radius from our hospital because emergencies do happen now and then during the post-operative period. 11. If you have stairs at home, take one step at a time slowly and minimize the number of trips. It helps to stay in one floor for the next few days. No lifting except what you can lift by one hand until you are released from the post-operative care. 12. Driving is discouraged until you are well healed. It may be 3-4 weeks before you feel strong enough to drive. You should be able to turn and look through the rear window without pain and you should be able to push the brake pedal very hard without pain before you drive. No fast rules, but SAFETY should be your primary concern. DO NOT drive if you are on sedating medications such as narcotics. 13. Call the clinic (during working hours) to make urgent appointment or go to the Emergency room, if any of the following occurs: i. Vaginal bleeding becomes heavy, more than a period. ii. Incision becomes red and sore, or drains pus. iii. Your temperature is over 100.4 or you have chill. iv. IV site becomes red and swollen (a little ``knot?? is usually OK) v. Persistent nausea and vomiting vi. Persistent constipation or diarrhea vii. Rash or allergic reaction to medications. Discharge Attestations SENIOR QUALITY ASSURANCE ANALYST Time Spent in Discharge Care*: greater than 30 min Coding Level of Care Code Acute Code for Chg Fwd Diagnoses POP-Q stage 2 cystocele N81.10 MARKE (stress urinary incontinence, female) N39.3 Menorrhagia N92.0
--- NOTE | 2022-03-14 10:21 | PC.NURSE ---
PVR Bladder Scan Patient voided 400ml, bladder scan revealed 45ml remaining in bladder
[2022-03-14] MEDS: hyDROXYzine 25 mg Capsule 50 MG PO (10:34)
[2022-03-14] MEDS: metformin XR 500 MG Tablet PO (10:35)
[2022-03-14] MEDS: docusate sodium 100 mg Capsule PO (10:35)
--- NOTE | 2022-03-14 13:37 | PC.NURSE ---
Patient declined vaccines at discharge
== END 2022-03-14 13:30 | disposition home or self-care (01) ==
LOC: OBGYN 13:39
PROVIDERS: Admitting Provider Obstetrics & Gynecology; PCP Registered Nurse; Visit Provider Obstetrics & Gynecology
PROC: (CPT 57288; principal; 2022-03-13 12:25)
PROC: 0JQC0ZZ Repair Pelvic Region Subcutaneous Tissue and Fascia, Open Approach (ICD-10-PCS; CPT 57240; 2022-03-13 12:25)
PROC: 0TJB8ZZ Inspection of Bladder, Via Natural or Artificial Opening Endoscopic (ICD-10-PCS; CPT 52000; 2022-03-13 12:25)
PROC: 0UDB8ZZ Extraction of Endometrium, Via Natural or Artificial Opening Endoscopic (ICD-10-PCS; CPT 58558; 2022-03-13 12:25)
DX: N93.9 Abnormal uterine and vaginal bleeding, unspecified (principal); N81.10 Cystocele, unspecified; N39.3 Stress incontinence (female) (male); K21.9 Gastro-esophageal reflux disease without esophagitis; E11.9 Type 2 diabetes mellitus without complications; E66.01 Morbid (severe) obesity due to excess calories; Z68.30 Body mass index [BMI] 30.0-30.9, adult
CPT/HCPCS: 57240; 57288; 58558; 36415; 36416; 80053; 81025; 82962; 84703; 85025; 85027; 86850; 86900; 88305; 96374; 96376; C1713; C1762; G0378; J0690; J1100; J1170; J1200; J1885; J2250; J2405; J2704; J2710; J3010; J3490; J7040; J7121; Q9968

== ENCOUNTER → 2023-06-03 08:51 | Outpatient (BNVA) | payer BC, MEDICAID, SELFPAY | PROVIDERS: PCP Registered Nurse; Visit Provider Nurse Practitioner Family | DX: Z23 Encounter for immunization (principal) | CPT/HCPCS: 86580 ==

== ENCOUNTER 2023-07-14 11:34 | Emergency (ER) | payer BC, MEDICAID, SELFPAY ==
[2023-07-14 11:40] VITALS: BP 118/63; PULSE 89; RESP 16; TEMP 36.6; O2SAT 96
[2023-07-14 13:12] LABS: Basophils % 0.4 %; Eosinophils # 0.2 10^3/uL (0.0-0.8); Eosinophils % 2.2 %; Lymphocytes # 2.9 10^3/uL (0.8-4.8); Lymphocytes % 34.6 %; Mean Corpuscular HGB Conc 33.3 g/dL (30-55); Mean Corpuscular Hemoglobin 27.8 pg (27-33); Mean Corpuscular Volume 83.3 fl (85-98); Mean Platelet Volume 8.3 fL (7.4-10.4); Monocytes # 0.8 10^3/uL (0.2-0.9); Monocytes % 9.6 %; Neutrophils # 4.39 10^3/uL (1.8-7.7); Neutrophils % 52.5 %; Nucleated Red Blood Cells % 0 %; Platelet Count 249 10^3/cmm (157-399); White Blood Count 8.35 10^3/uL (3.29-11.43)
[2023-07-14 13:33] LABS: Alanine Aminotransferase 46 U/L (0-33); Albumin Level 4.4 g/dL (3.5-5.2); Alkaline Phosphatase 114 U/L (35-105); Anion Gap 15.9 (5-19); Aspartate Amino Transferase 30 U/L (0-32); Blood Urea Nitrogen 8 mg/dL (6-20); C Reactive Protein 10.2 mg/L (0.0-4.9); Calcium 9.9 mg/dL (8.5-10.5); Carbon Dioxide 28 mmol/L (22-29); Chloride 99 mmol/L (98-107); Creatinine Clr Calc Pharmacy 181.6025; Globulin 3.8 g/dL (1.3-4.6); Glomerular Filtration Rate 146.9 mL/min (90-130); Glucose 102 mg/dL (65-115); Osmolality Calculated 287 mOsm/kg (285-295); Potassium 3.9 mmol/L (3.5-5.1); Sodium 139 mmol/L (136-145); Total Bilirubin 0.7 mg/dL (0.15-1.2); Total Protein 8.2 g/dL (6.6-8.7)
== END 2023-07-14 15:11 | disposition left against medical advice (07) ==
PROVIDERS: Emergency Medicine; Emergency Provider Family Medicine; PCP Nurse Practitioner Family
DX: Z53.21 Procedure and treatment not carried out due to patient leaving prior to being seen by health care provider (principal)
CPT/HCPCS: 36415; 80053; 85025; 86140

== ENCOUNTER 2023-07-14 14:47 | Outpatient (CLI) | payer BC, MEDICAID, SELFPAY ==
--- NOTE | 2023-07-14 14:51 | CT_ITS ---
WS: [id number] CT ABDOMEN AND PELVIS NONCONTRAST HISTORY: ABDOMINAL PAIN TECHNIQUE: Imaging performed through the abdomen and pelvis. Coronal and sagittal reformats are submi tted. All CT scans at [facility] use at least one of these dose optimization techniques: auto mated exposure control; mA and/or kV adjustment per patient size (includes targeted exams where dose is matched to clinical indication); or iterative reconstruction. DLP: 582.28 mGy.cm COMPARISON: 01/16/2022 Lower thorax: Lung bases are clear. Visualized heart is normal. No hiatal hernia. Liver: Diffuse low attenuation from hepatic steatosis. Previously described LEFT lobe liver lesion is poorly visualized without IV contrast. No definite mass identified. No bile duct dilatation. Gallbladder: Normal gallbladder. No pericholecystic fluid or cholelithiasis. No gallbladder wall thic kening. Pancreas: Normal size and attenuation. Normal pancreatic duct. No pancreatitis or mass. Spleen: Normal. Adrenal glands: Normal. No mass. Right kidney: Normal size kidney with no mass or hydronephrosis. Left kidney: Normal size kidney with no mass or hydronephrosis. Aorta: Normal abdominal aorta, no aneurysm or atherosclerosis. No free fluid, intraperitoneal air or significant lymphadenopathy. GI tract: Normal noncontrast imaging of the stomach, small bowel and colon. No obstruction or wall th ickening. Normal appendix. Abdominal wall: Negative. No hernia. Pelvis: Osseous structures: Unremarkable. CT/CT abdomen pelvis wo con [id number] IMPRESSION: 1. Diffuse hepatic steatosis. No liver mass identified on this unenhanced exam . 2. No appendicitis and no renal obstruction. 3. No GI tract obstruction.
== END 2023-07-14 14:48 | disposition home or self-care (01) ==
LOC: RAD 14:47
PROVIDERS: PCP Nurse Practitioner Family; Visit Provider Nurse Practitioner Family
DX: R10.9 Unspecified abdominal pain (principal); K76.0 Fatty (change of) liver, not elsewhere classified
CPT/HCPCS: 74176

== ENCOUNTER 2023-07-29 10:59 | Day surgery (SDC) | payer BC, MEDICAID, SELFPAY ==
[2023-07-29] VITALS (21 sets, daily range): BP systolic 109–163; BP diastolic 76–110; PULSE 69–96; RESP 10–27; TEMP 36.3–36.8; O2SAT 94–100; BMI 32.5
--- NOTE | 2023-07-29 11:34 | W.PM.OPSUD ---
Surgery/Procedure H&P Update DATE OF PROCEDURE: July 29, 2023 DATE H&P PERFORMED: 07/24/23 H&P UPDATE INFORMATION: I have reviewed H&P completed within last 30 days, I have examined patient prior to procedure and No changes to prior documentation PLANNED PROCEDURE: Operation Date: 07/29/23 12:30 Proposed Procedures p Laparoscopic Cholecystectomy 24637, 82607, K76.0, K80.20(Not Applicable) - DO jose manuel Rodriguez Laparoscopic Liver Biopsy wedge(Not Applicable) - John Carlisle DO
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
[2023-07-29 12:13] LABS: OR HCG Qualitative Urine Negative (Negative)
[2023-07-29] MEDS: ondansetron 2 mg/ML SDV 2 mL 4 MG IVP ×4 (12:25→17:00)
[2023-07-29] MEDS: sodium chloride 0.9% 1,000 ML 30 ML IV (12:25)
[2023-07-29] MEDS: ceFAZolin 2,000 MG in sodium chloride 0.9% (plus) 50 ML 100 MG IV (12:59)
[2023-07-29] MEDS: lidocaine-epi 2% PF 1:200,000 20 mL SDV XX (13:53)
--- NOTE | 2023-07-29 14:13 | P.OP_ITS ---
Operative Report Date of procedure: July 29, 2023 Surgeon: John Carlisle DO Brief History: This very pleasant 27-year-old female who presented my office with abdominal pain. She was diagnosed with symptomatic cholelithiasis and fatty liver. There is also what appears to be a fatty mass in her liver seen on imaging. Laparoscopic cholecystectomy with wedge liver biopsy was indicated. The risks and benefits were explained and documented. Procedure: Preoperative diagnosis: Symptomatic cholelithiasis, fatty liver Postoperative diagnosis: Same Procedure performed: Laparoscopic cholecystectomy, laparoscopic wedge liver biopsy Surgeon: Dr. John Carlisle DO Estimated blood loss: 5 mL Specimens: Gallbladder to pathology Complications: None apparent Description of procedure: Patient was wheeled into the operative room and placed on the OR table in a supine position. Abdomen was inspected prepped and draped in usual sterile fashion. Time-out was performed and all present were in agreement. A 15 blade scalp was used to make a stab incision in the left upper quadrant and intra- abdominal insufflation was achieved using a Veress needle. After localizing the tissue incisions were made and a 5 millimeter trocar was placed into the umbilicus as well as 2 in the right upper quadrant. A 12 millimeter trocar was placed in the epigastrium. Gallbladder was grasped and elevated. The triangle of Calot was carefully dissected using blunt dissection and electrocautery until the triangle of Calot clearly identified. The cystic duct was clipped proximally and double clipped distally. The duct was then ligated proximally. The cystic artery was doubly clipped and ligated. The gallbladder was then removed from the liver bed using electrocautery. The gallbladder was removed from the abdomen using an Endo-Catch bag through the epigastric incision. The liver bed was inspected and bleeding was controlled with electrocautery. Electrocautery was then used to wedge out a portion of the liver to control the hemostasis. That wedge of liver was taken out through the epigastric port and put in permanent formalin. The abdomen was irrigated and suctioned. All ports removed. Skin was washed and dried. Incisions were closed with 4-0 Monocryl in a subcuticular interrupted fashion. Skin glue was applied. Patient tolerated the procedure well.
[2023-07-29] MEDS: fentaNYL 50 mcg/mL INJ 2mL IVP ×2 (14:35→14:52)
[2023-07-29] MEDS: HYDROmorphone 1 mg/mL INJ 1 mL 0.5 MG IVP (15:10)
[2023-07-29] MEDS: HYDROcodone-acetaminophen 7.5-325 mg Tablet 1 TAB PO (16:03)
--- NOTE | 2023-07-29 16:03 | SUR.PHASEII ---
ABDOMEN INCISIONS APPEAR DRY AND INTACT. PO PAIN MEDICATION GIVEN
--- NOTE | 2023-07-29 17:00 | SUR.PHASEII ---
MEDICATED FOR NAUSEA. MODERATE RELIEF OF ABDOMEN PAIN.PT TRANSFERED TO CHAIR.
--- NOTE | 2023-07-29 17:30 | ANE.PACU2 ---
Inpatient post-anesthesia follow up: Airway intact: Yes Vital signs: Temperature 98.2 F Pulse Rate 71 Respiratory Rate 16 Blood Pressure 126/95 Pulse Oximetry 94 Oxygen Delivery Me thod Room Air Oxygen Flow Rate 2 Fraction of Inspir ed Oxygen Hydration adequate: Yes Nausea and vomiting: No Pain level: 1 Mental status: Baseline
== END 2023-07-29 17:30 | disposition home or self-care (01) ==
PROVIDERS: Anesthesiology; PCP Nurse Practitioner Family; Visit Provider Surgery
PROC: 0FT44ZZ Resection of Gallbladder, Percutaneous Endoscopic Approach (ICD-10-PCS; CPT 47562; principal; 2023-07-29 12:30)
PROC: 0FB04ZX Excision of Liver, Percutaneous Endoscopic Approach, Diagnostic (ICD-10-PCS; CPT 47379; 2023-07-29 12:30)
DX: K80.10 Calculus of gallbladder with chronic cholecystitis without obstruction (principal); K75.81 Nonalcoholic steatohepatitis (NASH); E66.01 Morbid (severe) obesity due to excess calories; Z68.32 Body mass index [BMI] 32.0-32.9, adult; E78.2 Mixed hyperlipidemia; Z98.1 Arthrodesis status
CPT/HCPCS: 47379; 47562; 81025; 88304; 88307; 88312; 88342; J0690; J1100; J1170; J1200; J2250; J2405; J2704; J3010; J3490; J7030

== ENCOUNTER → 2023-11-18 09:01 | Outpatient (BNVA) | payer MEDICAID, SELFPAY | PROVIDERS: PCP Nurse Practitioner Family; Visit Provider Orthopaedic Surgery | DX: M54.50 Low back pain, unspecified (principal); M54.9 Dorsalgia, unspecified; G89.29 Other chronic pain | CPT/HCPCS: 72110 ==

== ENCOUNTER 2023-11-25 06:30 | Outpatient (RCR) | payer MEDICAID, SELFPAY | END 2023-12-25 23:59 | disposition home or self-care (01) | LOC: WPT 06:30 | PROVIDERS: Visit Provider Orthopaedic Surgery | DX: M54.9 Dorsalgia, unspecified (principal); G89.29 Other chronic pain | CPT/HCPCS: 97161 ==

== ENCOUNTER 2024-08-24 05:00 | Outpatient (RCR) | payer MEDICAID, SELFPAY | END 2024-09-23 23:59 | disposition home or self-care (01) | LOC: WPT 05:00 | PROVIDERS: Visit Provider Student in an Organized Health Care Education/Training Program | DX: M54.50 Low back pain, unspecified (principal); G89.29 Other chronic pain | CPT/HCPCS: 97161 ==

== ENCOUNTER → 2025-01-03 13:05 | Outpatient (BNVA) | payer MEDICAID, SELFPAY | PROVIDERS: Visit Provider Obstetrics & Gynecology | DX: R30.0 Dysuria (principal) | CPT/HCPCS: 84315; 87086 ==

== ENCOUNTER → 2025-01-24 10:26 | Outpatient (BNVA) | payer MEDICAID, SELFPAY | PROVIDERS: Visit Provider Obstetrics & Gynecology | DX: N88.8 Other specified noninflammatory disorders of cervix uteri (principal) | CPT/HCPCS: 76830 ==